=== PATIENT | male | born 1990 | race Caucasian/White ===

== ENCOUNTER 2018-03-14 15:56 | Emergency (ER) | payer OTHER ==
[2018-03-14 16:03] VITALS: BP 148/59
--- NOTE | 2018-03-14 16:35 | ER Document Report ---
HPI - HPI Patient complains to provider of: pruritic rash Onset: Other - fingers and feet almost 2 months, the newer papular 2 days Pain Level: Denies Context: 27 yo [facility] c/o new rash for 2 days, itches. dorsal thighs, volar foareams. No inciting agent known. Chronic rash dorsal feet and fingerwebs. Both itch during the day. Associated Symptoms: None Exacerbated by: Denies Relieved by: Denies Similar symptoms previously: Yes Recently seen / treated by doctor: No - ROS ROS below otherwise negative: Yes Systems Reviewed and Negative: Yes All other systems reviewed and negative Past Medical History - General Information source: Patient - Social History Smoking Status: Never Smoker Lives with: Family Family History: Reviewed & Not Pertinent - Medical History Medical History: Negative Surgical Hx: Negative Vertical Provider Document - CONSTITUTIONAL Agree With Documented VS: Yes Exam Limitations: No Limitations General Appearance: No Apparent Distress - INFECTION CONTROL TRAVEL OUTSIDE OF THE [place] IN LAST 30 DAYS: No - NECK Neck: Supple - RESPIRATORY Respiratory: Breath Sounds Normal, No Respiratory Distress - CARDIOVASCULAR Cardiovascular: Regular Rate, Regular Rhythm - NEURO Level of Consciousness: Alert - DERM Integumentary: Rash - 2 different rashes: 2 day papular red, some linear- suspect allergic contact dermatitis. 2 months feet/hands chronic dermatitis Course - Vital Signs Vital signs: Temp Pulse Resp BP Pulse Ox 98.7 F 74 14 148/59 H 99 03/14/18 16:03 03/14/18 16:03 03/14/18 16:03 03/14/18 16:03 03/14/18 16:03 Discharge - Discharge Clinical Impression: Allergic contact dermatitis Qualifiers: Contact dermatitis trigger: unspecified trigger Qualified Code(s): L23.9 - Allergic contact dermatitis, unspecified cause Condition: Good Disposition: HOME, SELF-CARE Instructions: Contact Dermatitis ([facility]), Use of Diphenhydramine, Steroid Medication Additional Instructions: Call and schedule an appointment with a medical laboratory assistant Steroid taper pack Return to the emergency room any worsening of the symptoms Benadryl 25-50 mg every 6 hours for itching Prescriptions: Prednisone [Deltasone 10 mg Tablet] 10 mg PO ASDIR PRN #21 tablet PRN Reason: Referrals: IVONNE HERRERA DO [ACTIVE STAFF] - Follow up in 3-5 days
== END 2018-03-14 16:51 | disposition home or self-care (01) ==
LOC: ER 15:56
DX: L23.9 Allergic contact dermatitis, unspecified cause (principal)
CPT/HCPCS: 99283